=== PATIENT | male | born 1945 | race Caucasian/White ===

== ENCOUNTER → 2016-07-11 | Outpatient (CLI) | payer OTHER, BC ==
[~2016-07-11] MED LIST: ACET-24 PO; AMIT10TA6 PO; ASPEC325 PO; BESI0.6S; CYAN100048 PO; HYDR-5688 PO; HYDROCODONE PO; MULT-506 PO; OMEP20TA PO; PRAV20TA PO; PRAV40TA2 PO; PRED1SUS3 OPL; RXC5 PO; SILD100T PO; VITA400C3 PO; Z QUILL PO; ZOLP10TA PO
[2016-07-11 13:15] LABS: BASO % 0.4 %; BASO ABS # 0.02 K/uL (0-0.2); COMPLETE YES; EOS % 2.4 %; HEMATOCRIT 44.1 % (42-52); IG% 0.2 %; LYMPH % 32.8 %; LYMPH ABS # 1.77 K/uL (1.2-3.4); MEAN CELL VOLUME 93.4 fL (80-100); MEAN CORPUSCULAR HEMOGLOBIN 32.8 pg (25-34); MEAN CORPUSCULAR HGB CONC 35.1 g/dl (32-36); MEAN PLATELET VOLUME 10.5 fL (7.4-10.4); MONO % 10.4 %; NEUT % 53.8 %; PLATELET COUNT 272 K/uL (130-400); RED BLOOD COUNT 4.72 M/uL (4.7-6.1); WHITE BLOOD COUNT 5.39 K/uL (4.8-10.8)
[2016-07-11 13:25] LABS: ALT/SGPT 32 U/L (12-78); AST/SGOT 20 U/L (15-37); BLOOD UREA NITROGEN 14 mg/dl (7-18); BUN/CREATININE RATIO 12.8 (10-20); CALCIUM 8.5 mg/dl (8.5-10.1); CARBON DIOXIDE 31 mmol/L (21-32); CHLORIDE 101 mmol/L (98-107); GLUCOSE 97 mg/dl (70-99); POTASSIUM 4.6 mmol/L (3.5-5.1); SODIUM 139 mmol/L (136-145)
[2016-07-11 13:28] LABS: ALB/GLOB RATIO 1.2 (0.9-2); ALKALINE PHOSPHATASE 74 U/L (45-117); CHOLESTEROL 146 mg/dl (0-200); CHOLESTEROL/HDL RATIO 3.7; HDL CHOLESTEROL 40 mg/dl; LDL CHOLESTEROL CALCULATED 88 mg/dl; TRIGLYCERIDES 91 mg/dl (0-150); VERY LOW DENSITY LIPOPROT CALC 18 mg/dl
== END | disposition home or self-care (01) ==
LOC: C.LABSPEC 13:00
PROVIDERS: ATTEND Family Medicine
DX: E78.2 Mixed hyperlipidemia (principal); I10 Essential (primary) hypertension; K21.9 Gastro-esophageal reflux disease without esophagitis

== ENCOUNTER → 2017-01-08 | Outpatient (CLI) | payer OTHER, BC ==
[2017-01-08 13:48] LABS: BASO % 0.2 %; BASO ABS # 0.01 K/uL (0-0.2); COMPLETE YES; EOS % 2.8 %; HEMATOCRIT 43.1 % (42-52); IG% 0.2 %; LYMPH ABS # 1.48 K/uL (1.2-3.4); MEAN CELL VOLUME 94.5 fL (80-100); MEAN CORPUSCULAR HEMOGLOBIN 32.2 pg (25-34); MEAN CORPUSCULAR HGB CONC 34.1 g/dl (32-36); MEAN PLATELET VOLUME 10.4 fL (7.4-10.4); MONO % 10.5 %; NEUT % 56.3 %; PLATELET COUNT 300 K/uL (130-400); RED BLOOD COUNT 4.56 M/uL (4.7-6.1); WHITE BLOOD COUNT 4.94 K/uL (4.8-10.8)
[2017-01-08 13:58] LABS: ALT/SGPT 29 U/L (12-78); AST/SGOT 21 U/L (15-37); BLOOD UREA NITROGEN 15 mg/dl (7-18); BUN/CREATININE RATIO 13.5 (10-20); CALCIUM 8.8 mg/dl (8.5-10.1); CARBON DIOXIDE 28 mmol/L (21-32); CHLORIDE 104 mmol/L (98-107); GLUCOSE 97 mg/dl (70-99); POTASSIUM 4.5 mmol/L (3.5-5.1); SODIUM 137 mmol/L (136-145)
[2017-01-08 14:05] LABS: ALB/GLOB RATIO 1.1 (0.9-2); ALKALINE PHOSPHATASE 68 U/L (45-117); CHOLESTEROL 147 mg/dl (0-200); CHOLESTEROL/HDL RATIO 4.1; FREE PSA 0.25 ng/ml; HDL CHOLESTEROL 36 mg/dl; LDL CHOLESTEROL CALCULATED 84 mg/dl; TRIGLYCERIDES 135 mg/dl (0-150); VERY LOW DENSITY LIPOPROT CALC 27 mg/dl
== END | disposition home or self-care (01) ==
LOC: C.LABSPEC 13:02
PROVIDERS: ATTEND Family Medicine
DX: Z00.00 Encounter for general adult medical examination without abnormal findings (principal); Z12.5 Encounter for screening for malignant neoplasm of prostate; E78.2 Mixed hyperlipidemia; I10 Essential (primary) hypertension; K21.9 Gastro-esophageal reflux disease without esophagitis

== ENCOUNTER 2017-01-24 09:29 | Inpatient (IN) | payer OTHER, BC ==
[2017-01-09 10:01] VITALS: BMI 25.0
--- NOTE | 2017-01-09 10:28 | PAT Medication Instructions ---
Service Date Jan 09, 2017. Current Home Medication List Cyanocobalamin (Vitamin B-12), 1,000 MCG PO QAM Hydrocodone/Acetaminophen 5MG/325MG ([place] 5MG/325MG), 0.5-1 TABLET PO Q6H PRN for N Multivitamin (Multivitamin), 1 TAB PO QAM Omeprazole (Omeprazole), 40 MG PO QAM Pravastatin (Pravachol ), 80 MG PO QPM Sildenafil Citrate (Viagra), 100 MG PO PRN Vitamin E (Vitamin E 400 Iu), 400 INTER.UNIT PO QAM Zolpidem Tartrate (Ambien), 12.5 MG PO HS Medication Instructions For Your Scheduled Surgery - Hold the following medications 2 weeks prior to surgery: Vitamin E (Vitamin E 400 Iu), 400 INTER.UNIT PO QAM - Hold the following medications the morning of surgery: Sildenafil Citrate (Viagra), 100 MG PO PRN Multivitamin (Multivitamin), 1 TAB PO QAM Cyanocobalamin (Vitamin B-12), 1,000 MCG PO QAM - Take the following medications the morning of surgery with a sip of water: Omeprazole (Omeprazole), 40 MG PO QAM Hydrocodone/Acetaminophen 5MG/325MG ([place] 5MG/325MG), 0.5-1 TABLET PO Q6H PRN for N (okay to take up to 4 hours prior to surgery if needed) - Take the following medications as scheduled the night before surgery: Zolpidem Tartrate (Ambien), 12.5 MG PO HS Sildenafil Citrate (Viagra), 100 MG PO PRN Pravastatin (Pravachol ), 80 MG PO QPM Hydrocodone/Acetaminophen 5MG/325MG ([place] 5MG/325MG), 0.5-1 TABLET PO Q6H PRN for N (if needed) If you have any questions please call us at [phone] or [phone] or [phone]
[2017-01-09 11:02] LABS: URINE APPEARANCE CLEAR (CLEAR); URINE BILIRUBIN NEG (NEG); URINE COLOR YELLOW; URINE NITRITE NEG (NEG); URINE SPECIFIC GRAVITY 1.013 (1.000-1.030); UROBILINOGEN NEG (NEG); ZZUR CULT IF INDIC CLEAN CATCH NO
[2017-01-09 11:05] LABS: MANUAL MICROSCOPIC REQUIRED? NO; REVIEW REQ? NO
[2017-01-09 11:09] LABS: INR 1.2 (0.9-1.1); PARTIAL THROMBOPLASTIN RATIO 1.2; PROTHROMBIN TIME (PATIENT) 12.6 SECONDS (9.0-12.0)
[2017-01-09 11:21] LABS: ESTIMATED AVERAGE GLUCOSE 120 mg/dl; HA1C FLAG Normal (Normal)
--- NOTE | 2017-01-09 11:21 | DIAGNOSTIC IMAGING REPORT ---
CHEST PREADMISSION(PA/LAT) HISTORY: 71 years-old Male preadmission exam COMPARISON: Chest radiograph 01/17/2013 TECHNIQUE: Frontal and lateral views of the chest FINDINGS: There is atherosclerosis of the aorta. Cardiac silhouette is within normal limits. No pneumothorax, pleural effusion or focal airspace consolidation. Advanced degenerative changes involve the right shoulder. There is convex left curvature of the lower thoracic spine. IMPRESSION: No acute cardiopulmonary process. The above report was generated using voice recognition software. It may contain grammatical, syntax or spelling errors. Electronically signed by: Daron Canales M.D. 01/09/2017 11:19 AM Dictated Date/Time: 01/09/2017 11:19 AM
--- NOTE | 2017-01-23 18:47 | HISTORY & PHYSICAL EXAMINATION ---
DATE OF ADMISSION: 01/24/2017 CHIEF COMPLAINT: Chronic right shoulder pain. HISTORY OF PRESENT ILLNESS: This is a 71-year-old male patient of Dr. Phillips'ashley complaining of chronic right shoulder pain, longstanding, now progressively getting worse. The patient has failed conservative treatments. He has been diagnosed with end-stage osteoarthritis in his shoulder and wishes to proceed with a right total shoulder arthroplasty and distal clavicle excision. PAST MEDICAL HISTORY: Hypercholesterolemia. SOCIAL HISTORY: Nonsmoker, nondrinker. PAST SURGICAL HISTORY: Right knee replacement, left side hernia. REVIEW OF SYSTEMS: The patient complains of chronic right shoulder pain. Otherwise, denies any shortness of breath, chest pain, nausea, vomiting or any other joint complaints. FAMILY HISTORY: Noncontributory. MEDICATIONS: Include: 1. Pravastatin 80 mg daily. 2. Ambien 12.5 mg at bedtime. 3. [place] as needed. 4. Viagra 100 mg as needed. 5. Omeprazole 40 mg daily. ALLERGIES: No known drug allergies. PHYSICAL EXAMINATION: GENERAL: Well-developed, well-nourished 71-year-old male, in no acute distress. He is alert and oriented x3 and pleasant. HEENT: Normocephalic, atraumatic. Extraocular motions are intact. Pupils are equal and reactive to light. HEART: Regular rate and rhythm, no murmurs appreciated. LUNGS: Clear. ABDOMEN: Soft and nontender, bowel sounds are present. EXTREMITIES: Right shoulder reveals limited range of motion with pain and crepitation. He has 5/5 strength. NEUROLOGIC: Neurovascularly, he is intact in his right upper extremity. 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 PLAN: The patient was advised of his diagnosis. Indications, risks, benefits, and postop course have all been reviewed. The patient wishes to proceed with a right total shoulder arthroplasty and distal clavicle excision. Necessary consent forms, preoperative testing and clearances will be obtained.
[~2017-01-24] VITALS: Ht 172.7 cm; Wt 75.7 kg
[2017-01-24] VITALS (9 sets, daily range): BP systolic 107–160; BP diastolic 60–96; PULSE 83–121; TEMP 36.4–37.1; O2SAT 92–99; Ht 172.7 cm; Wt 75.7 kg
[~2017-01-24 09:29] MED LIST changes: -ACET-24 PO; +ACETAMINOPHEN 500 MG TAB PO SCH; -AMIT10TA6 PO; -ASPEC325 PO; -BESI0.6S; +CEFAZOLIN 1000MG/55 ML D5W 55 ML IV SCH; +CeleBREX 200 MG CAP PO SCH; +DEXAMETHASONE 4 MG TAB PO SCH; +FAMOTIDINE 20 MG TAB PO SCH; +GABAPENTIN 300 MG CAP PO SCH; -HYDROCODONE PO; +LACTATED RINGER'S 1000ML 1,000 ML IV SCH; +METOCLOPRAMIDE HCL 10 MG TAB PO SCH; -PRAV40TA2 PO; -PRED1SUS3 OPL; +ROPIVACAINE 0.5% 5 MG/ML 30 ML VIAL ONE; -RXC5 PO; -Z QUILL PO
[2017-01-24] MEDS ORDERED: MIDAZOLAM HCL 1 MG/ML 2ML VIAL ONE (10:17)
[2017-01-24] MEDS ORDERED: FENTANYL CITRATE INJ 50 MCG/1 ML 2 ML VIAL ONE (10:17)
--- NOTE | 2017-01-24 11:07 | History & Physical Bridge Note ---
H&P Re-Evaluation Bridge Note: I have examined the patient, reviewed the History & Physical and in the interval since the performance of the History & Physical I have noted the following changes of clinical significance: No changes noted
[2017-01-24] MEDS ORDERED: EpINEphrine HCL INJ 1 MG/ML 5ML SYRINGE ONE ×2 (11:55→11:56)
[2017-01-24] MEDS ORDERED: BACITRACIN 50000 UNIT VIAL ONE (11:55)
[2017-01-24] MEDS ORDERED: ONDANSETRON INJ 2 MG/ML 2 ML VIAL ONE (13:21)
[2017-01-24] MEDS ORDERED: PROPOFOL IV EMULSION 10 MG/ML 20 ML VIAL IV ONE (13:21)
[2017-01-24] MEDS ORDERED: DEXAMETHASONE SOD INJ 4 MG/ML VIAL ONE (13:21)
[2017-01-24] MEDS ORDERED: LIDOCAINE HCL 2% 2 ML VIAL (20MG/ML) ONE (13:21)
--- NOTE | 2017-01-24 15:55 | [facility] Post Operative Brief Note ---
Immediate Operative Summary Operative Date Jan 24, 2017. 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 Surgeon Dr. Chris Phillips Head Turbine Operator Surgeon(s) Tobias Izaguirre PA-C Estimated Blood Loss 100 mL Findings Severe end-stage glenohumeral osteoarthritis with loose bodies, marked biceps tenosynovitis, subacromial impingement from inferior before meals joint spurs, intact rotator cuff. Specimens Permanent: A. Right Humeral Head Drains 2 Hemovac Anesthesia Gen. and regional block Complication(s) None Disposition Recovery Room / PACU
[2017-01-24] MEDS ORDERED: MAGNESIUM HYDROXIDE SUSP 30 ML UDC PO PRN (16:15)
[2017-01-24] MEDS ORDERED: BISACODYL 10 MG SUPP PR PRN (16:15)
[2017-01-24] MEDS ORDERED: ALUMINUM/MAGNESIUM SUSP 30 ML UDC PO PRN (16:15)
[2017-01-24] MEDS ORDERED: ONDANSETRON INJ 2 MG/ML 2 ML VIAL IV PRN (16:15)
--- NOTE | 2017-01-24 16:30 | Anesthesiology Progress Note ---
Anesthesia Post Op Note Date & Time Jan 24, 2017 at 16:30 Vital Signs Pain Intensity: 1 Vital Signs Past 12 Hours Date Time Temp Pulse Resp B/P (MAP) Pulse Ox O2 Delivery O2 Flow Rate FiO2 01/24/17 16:00 36.4 105 16 147/80 99 Oxymask 10 01/24/17 09:45 36.5 83 20 160/96 99 Room Air Notes Mental Status: alert / awake / arousable, participated in evaluation Pt Amnestic to Procedure: Yes Nausea / Vomiting: adequately controlled Pain: adequately controlled Airway Patency, RR, SpO2: stable & adequate BP & HR: stable & adequate Hydration State: stable & adequate Anesthetic Complications: no major complications apparent
--- NOTE | 2017-01-24 17:28 | DIAGNOSTIC IMAGING REPORT ---
RIGHT SHOULDER MIN 2 VIEWS ROUTINE CLINICAL HISTORY: Post shoulder surgery Right COMPARISON: None. DISCUSSION: Shoulder arthroplasty good position. Good contact between prosthetic and underlying bone. Expected soft tissue postoperative change. Surgical drains in position. IMPRESSION: Anatomic alignment status post right shoulder arthroplasty The above report was generated using voice recognition software. It may contain grammatical, syntax or spelling errors. Electronically signed by: Kevin Butterfield M.D. 01/24/2017 5:27 PM Dictated Date/Time: 01/24/2017 5:26 PM
[2017-01-24] MEDS: D5W AND 1/2NSS + 20MEQ KCL 1,000 ML IV SCH (19:14)
[2017-01-24] MEDS: CEFAZOLIN IV 1,000 MG in DEXTROSE 5% 50ML 50 ML IV SCH (19:56)
[2017-01-24] MEDS: KETOROLAC TROMETHAMINE 15 MG/ML VIAL IV. SCH (19:57)
--- NOTE | 2017-01-24 20:14 | History and Physical ---
History & Physical Date of Service Jan 24, 2017. History & Physical pt seen and examed, d/w PA about perdomo points of dignosis and care plan, agreed current management, for details please referral to PA's note S: Pleasant, no complaining, no right shoulder pain, ROS details see PA's note O: VS reviewed, mild tachycardia and 110, NAD Lungs: decreased breathing sound, no respiratory distress, no accessory muscle use Cardiovascular: regular rate, rhythm, tachycardia no edema, normal peripheral pulses Abdomen / GI: normal bowel sounds, non tender, soft Extremities: no calf tenderness, no pedal edema Neurologic/Psychiatric: alert, normal mood/affect, oriented x 3, CNII-XII intact labs, images reviewed , see PA's note A/P: 71-year-old white male S/P right shoulder procedure, pain management, PT OT, DVT prophylaxis, discharge plan, will per primary team Will give IV fluid because of tachycardia, altered vital sign to 2 hour until stabilized, or heart rate less than 100 History of dyslipidemia we'll continue home medication Possible GERD, we'll continue PPI Thank you for the chance to involve the care of the patient will continue follow -up
[2017-01-24] MEDS: ACETAMINOPHEN 500 MG TAB PO SCH (21:51)
[2017-01-24] MEDS: DOCUSATE SODIUM 100 MG CAP PO SCH (21:51)
[2017-01-24] MEDS: PRAVASTATIN SOD 20 MG TAB PO SCH (21:51)
--- NOTE | 2017-01-24 21:55 | OPERATIVE REPORT ---
DATE OF OPERATION: 01/24/2017 INDICATION FOR THE PROCEDURE: The patient is a 71-year-old male who has chronic progressive osteoarthritis of his right shoulder, it is clearly wfkv-vs-cqau in glenohumeral joint. The radiographs demonstrate voxs-he-ukvv in glenohumeral joint . He also has AC joint arthritis and inferior AC joint spurs likely causing impingement on his rotator cuff. PREOPERATIVE DIAGNOSIS: End-stage glenohumeral osteoarthritis, right shoulder; AC joint arthritis with subacromial impingement. POSTOPERATIVE DIAGNOSIS: Same including marked bicipital tenosynovitis. PROCEDURE: Right total shoulder arthroplasty, biceps tenodesis, distal clavicle excision and excision of subacromial, acromioclavicular joint bone spurs. SURGEON: Dr. Phillips. BOARD CERTIFIED FAMILY PHYSICIAN: Tobias Izaguirre PA-C. ANESTHESIA: Regional block and general. OPERATIVE PROCEDURE: The patient was taken to the operating room, anesthetized under regional block and general anesthetic. He was placed on the operating table in a 30-degree beach chair position. A towel was placed in the medial border of his right scapula. He was translated to the right side of the bed, so his shoulder could be manipulated off the bed as necessary. His head was placed on to a foam headrest. Protective eyewear placed. He had TEDs, and SCDs placed. His right shoulder exam demonstrated that he had about 110-120 degrees of forward elevation, he had about 70-80 degrees of abduction and about 10-20 degrees of external rotation with bone on bone crepitation of the shoulder clearly. He also had problem in AC joint with AC joint palpable spurs. His right shoulder was sterilely prepped and draped with ChloraPrep. We did an anterior deltopectoral approach to the shoulder. The skin was incised sharply in a longitudinal fashion. Subcutaneous tissues were divided down to the fascia. The cephalic vein was dissected out and retracted laterally with the deltoid. The pectoralis was retracted medially. The upper centimeter of the pectoralis was released for inferior exposure. Circumflex vessels were identified, tied off with silk ties and divided laterally. The biceps tendon sheath had marked hypertrophic tenosynovitis around the biceps tendon. This was all excised. Then we tenodesed the biceps to the pectoralis tendon with a ocuceu-wt-nelit #2 FiberWire suture and resected the biceps proximally. The rotator was opened up. A large joint effusion was evacuated. A loose body in the rotator interval area was excised. And then the subscapularis was taken down with a transtendinous incision leaving a cuff of tissue for repair on the lesser tuberosity. A traction suture was placed with #1 Vicryl. Then the capsule was released along the neck until we could expose large inferior osteophytes on the neck. I went ahead also and originally, we split the inferior fibers of the subscapularis down to the capsule. I reflected the inferior fibers off the inferior capsule with a Kittner elevator and did place Hohmann retractor to protect the axillary nerve. Then we externally rotated the humerus till to expose the osteophytes. They were excised circumferentially with an osteotome, artist chisels type device and rongeur. The humeral head was completely down to eburnated bone. The humerus was then retracted posterior to the glenoid and with the Fukuda retractor. Then the capsule was released down to the glenoid under direct visualization. The capsule was released off the anterior glenoid and rotator was released down to meet the capsule for a 360 degree release. We also did a partial capsulectomy. Then a Bankart retractor was placed anteriorly. Then the axillary nerve was protected inferiorly, we did an electrocautery capsular release along the anterior inferior and posterior inferior glenoid. We did resect the glenoid labrum circumferentially. This did reveal a loose body in the posterior joint which was removed as well. The glenoid was fully down to the eburnated bone, no articular cartilage remaining on the entire glenoid. The humerus was then exposed with extension and external rotation. The humeral head cut was made to match the humeral head anatomically with an oscillating saw. The humeral head measured to be 52 mm diameter. Then we went ahead and retracted the humerus posterior to the glenoid with glenoid retractors and was a little tight to retract posteriorly. We were able to expose glenoid well and I went ahead and drilled our central drill hole for the 52 mm glenoid component. I used the Tornier Affinity CortiLoc glenoid and we used the Tornier Ascend Flex humeral component. After the central drill hole was made, a 52 mm reamer was used and then the guide for the peg holes were used and we drilled the peg holes. At this point, we did notice a small opening in the cephalic vein and we cauterized initially where it kept bleeding, so we went ahead and tied off a section of the cephalic vein with silk ties. Then we re-exposed the glenoid, copiously irrigated it and then placed epinephrine soaked tampons into the individual drill holes. We had previously done a trial reduction with a 52 trial, and which fit well. Then went ahead and mixed the Palacos G cement. Then the Affinity CortiLoc 52 component was cemented into position with the central peg press fit. There was good fixation, all excess cement was cleared. When the cement cured, we went ahead and addressed the humerus. We used a starting awl followed by sequential broaches up to a 5, which had a tight fit and fill at 5 due to the dense cancellous bone. I felt we could not go up to a higher size, even though the patient's templated at a 7. The trial reduction was performed and we had to use a 52 x 23 head to get a satisfactory stability, but this did afford good stability and a range of motion through full range of motion. I then went ahead and removed the trial and made 3 drill holes into the bicipital groove bone lateral to the lesser tuberosity, placed transosseous #5 FiberWire sutures around the lesser tuberosity. Three sutures were placed. Then the humerus cut was re-exposed and irrigated and the final stem with the short standard type stem which was the size 5A stem which was assembled to the 52 x 23 high offset head. Then this component was impacted into the humerus with a tight pressfit. We reduced it to the glenoid, verified stability. Then went ahead and repaired the subscapularis with the #5 FiberWire sutures using Rufino-Edgar suture technique, soft tissue fixation with aqwwjv-rd-lukhx #2 Fiberwire sutures and the arm was held in maximal external rotation and the rotator interval was closed and the medial most suture was #1 Vicryl suture. The repair was stable through 150 degrees of forward elevation, 90 degrees of abduction and about 40-50 degrees of external rotation. The attention was then taken to the AC joint. A transverse incision was made over the AC joint. Skin was incised sharply. Subcutaneous flaps were elevated. Then, a transverse incision was made through the fascia. The fascia was elevated off the distal clavicle, which demonstrated hypertrophic distal clavicle and spurs both superiorly and inferiorly at the AC joint. A 1 cm distal clavicle was resected with an oscillating saw. Then we also removed the dorsal spurs on the acromion and the inferior spurs at the acromial facet that were causing impingement were both removed. A ronguer was used to round off the edges of the resection. The joint was copiously irrigated. Then the fascial closure between the trapezius and deltoid fascia was closed with liicfd-mg-ettqn #2 FiberWire sutures getting a secure repair. We used wfwuef-od-ixgrd sutures there. Then after irrigation again the both incisions were repaired, the pectoralis with kbgebt-dr-muiqy #2 FiberWire, placed 2 Hemovac drains into the deltopectoral interval and placed it deep to the conjoint tendon and deep to the deltoid. Then went ahead and repaired the deltopectoral interval with sakxkh-uu-mxjau #1 Vicryl sutures. Then repaired the subcutaneous tissues with interrupted 2-0 Vicryl sutures, skin closed with florecita and the superior subcutaneous tissues closed with interrupted 2-0 Vicryl and skin closed with florecita. Sterile dressings were applied and the patient had about 100 mL of blood loss and tolerated the procedure well. Tobias Izaguirre PA-C was my patent legal assistant. He functioned as patent legal assistant through the entire procedure. He assisted in arm positioning, soft tissue retraction, instrument management and he did perform the subcutaneous and skin closure and will participate in postoperative care of the patient. I attest to the content of the Intraoperative Record and any orders documented therein. Any exceptions are noted below. PHILLY
--- NOTE | 2017-01-24 22:58 | HOSPITALIST CONSULT REPORT ---
DATE OF CONSULTATION: 01/24/2017 REASON FOR CONSULTATION: 1. Postoperative medical management. 2. Status post right total shoulder arthroplasty with biceps tenodesis and acromioplasty. HISTORY OF PRESENT ILLNESS: Mr. Barrios is a very pleasant 71-year-old white male with a history of Hypercholesterolemia, probable Prediabetes (elevated hemoglobin A1c), and Osteoarthritis who underwent a right total shoulder arthroplasty with biceps tenodesis and acromioplasty earlier today with Dr. Chris Phillips. His primary care physician is Dr. Mirza Shin in the [facility]. The patient states that he is generally healthy. 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 Overall, he feels his health is very good. He remains physically active on a daily basis and has not experienced any limiting cardiopulmonary symptoms at any time. He specifically denies any history of exertional chest pain, heaviness, tightness, pressure, or discomfort. He denies any exertional neck, jaw, back, or arm pain. He denies any history of shortness of breath, unusual dyspnea on exertion, orthopnea, or PND. No history of palpitations, tachypalpitations, syncope, or near syncope. The patient further denies any history of lung disease or prior tobacco use. He denies any history of CAD, SD, CHF, rheumatic fever, or cardiac dysrhythmias. No history of stroke or mini stroke. No liver or renal disease to his knowledge. The patient is currently being seen in room 305, and he offers no complaints. His surgical pain is well controlled, and he offers no complaints. He tolerated his evening meal without nausea or vomiting. The patient currently denies any chest discomfort or shortness of breath. He denies any nausea or vomiting. He denies any lightheadedness or dizziness. MEDICATIONS: 1. Protonix 40 mg daily. 2. Multivitamin daily. 3. Aspirin 325 mg daily. 4. Tylenol 1000 mg p.o. q. 8 hours. 5. Pravachol 80 mg q.p.m. 6. Colace 100 mg b.i.d. 7. Toradol 15 mg IV q. 6 hours. 8. Ancef 1 g IV q. 8 hours. 9. D5 half normal saline with potassium chloride at 100 mL per hour. 10. Benadryl 25 mg p.o. q. 8 hours p.r.n. for itching. 11. Zofran 4 mg IV q. 6 hours p.r.n. for nausea or vomiting. 12. Maalox 30 mL p.o. q. 4 hours p.r.n. for dyspepsia. 13. OxyIR 1 or 2 tablets every 4 hours as needed for pain. 14. Milk of magnesia 30 mL p.o. q. 6 hours p.r.n. for constipation. 15. Dulcolax 10 mg rectally q. day p.r.n. for constipation. ALLERGIES: NKDA. PAST MEDICAL HISTORY: 1. Dyslipidemia. 2. Osteoarthritis. 3. Status post right TKA in 2012. 4. Status post left-sided hernia repair. 5. History of bilateral cataract surgery. 6. History of EGD. 7. 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 SOCIAL HISTORY: The patient is . He lives in [place], [place]. Does not use alcohol or tobacco. Remains physically active on a daily basis. 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 He can climb more than 2 flight of stairs without difficulty. He is accompanied today by his daughter. He is nonsmoker. Does not drink alcohol. FAMILY HISTORY: Noncontributory. PHYSICAL EXAMINATION: VITAL SIGNS: Temperature is 36.4 degree Celsius, pulse is ranged between 101 and 108 beats beginning intraoperatively, respiratory rate is 14 and unlabored, blood pressure is 124/73, SpO2 is 98% on room air. GENERAL: The patient is in no acute distress. HEENT: Head is atraumatic, normocephalic. EOMs intact. Sclerae anicteric. Facies symmetric. No perioral cyanosis. Mucous membranes moist. NECK: Without thyromegaly, adenopathy or JVD. Carotid upstrokes are +2 bilaterally without bruits. CHEST AND LUNGS: Clear to auscultation throughout all lung jaeger. No wheezes, rales, or rhonchi. CARDIOVASCULAR: S1 and S2 are irregular without murmur, gallop, or rub. PMI is nondisplaced. No lifts, heaves, or thrills. No abdominal, aortic or renal bruits. ABDOMEN: Bowel sounds present. No masses, organomegaly, or tenderness. NEUROLOGIC: The patient is awake, alert, and oriented. Pleasant and cooperative. Answers questions appropriately. Speech is clear. Normal movement in bilateral legs and left upper extremity. MUSCULOSKELETAL: Reveals surgical dressing on the right shoulder. Surgical drain in place. Right arm is in a sling. ASSESSMENT: 1. Postoperative day #0 right total shoulder arthroplasty. 2. 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 3. Probable Prediabetes with abnormal hemoglobin A1c. 4. Sinus tachycardia, beginning intraoperatively; most likely a side effect of rocuronium and other medications with anticholinergic side effects. 5. Hemodynamically stable. PLAN: 1. The patient is doing well postoperatively. 2. Reassurance of his elevated heart rate is likely secondary to medications and post-operative hyperadrenergic state. 3. Continue Pravachol 80 mg daily. 4. Ongoing DVT prophylaxis as per surgeon. 5. Continue Protonix 40 mg daily for GI protection. 6. Ongoing pain management as per surgeon. 7. Monitor daily CBC and PRP. 8. Physical therapy as per protocol. 9. Continue IV fluids for the time being. 10. We will continue to follow along while hospitalized. MTDD
[2017-01-24] MEDS ORDERED: ZOLPIDEM TARTRATE 10 MG TAB PO ONE (23:01)
[2017-01-24] MEDS ORDERED: PANTOprazole SOD 40 MG TAB PO STA (23:01)
[2017-01-24] MEDS: OXYCODONE HCL IR 5 MG TAB (IMMEDIATE RELEASE) PO PRN (23:51)
[2017-01-25] MEDS: KETOROLAC TROMETHAMINE 15 MG/ML VIAL IV. SCH ×4 (02:06→20:03)
[2017-01-25 03:10] VITALS: BP 126/72; PULSE 80; TEMP 36.4; O2SAT 95
[2017-01-25] MEDS: CEFAZOLIN IV 1,000 MG in DEXTROSE 5% 50ML 50 ML IV SCH (04:19)
[2017-01-25] MEDS: D5W AND 1/2NSS + 20MEQ KCL 1,000 ML IV SCH ×2 (04:20→14:07)
[2017-01-25] MEDS: ACETAMINOPHEN 500 MG TAB PO SCH ×3 (05:31→22:00)
[2017-01-25 06:16] LABS: HEMATOCRIT 34.2 % (42-52); MEAN CELL VOLUME 93.7 fL (80-100); MEAN CORPUSCULAR HEMOGLOBIN 32.3 pg (25-34); MEAN CORPUSCULAR HGB CONC 34.5 g/dl (32-36); PLATELET COUNT 228 K/uL (130-400); RED BLOOD COUNT 3.65 M/uL (4.7-6.1); WHITE BLOOD COUNT 14.61 K/uL (4.8-10.8)
[2017-01-25 06:43] LABS: BUN/CREATININE RATIO 17.8 (10-20); CALCIUM 8.2 mg/dl (8.5-10.1); CREATININE 1.2 mg/dl (0.60-1.40); POTASSIUM 4.2 mmol/L (3.5-5.1)
[2017-01-25 07:25] VITALS: BP 115/65; PULSE 62; TEMP 36.3; O2SAT 95
--- NOTE | 2017-01-25 08:16 | Orthopedic Progress Note ---
Orthopedic Progress Note Date of Service Jan 25, 2017. Subjective Post OP Day: 1 Reports: feeling well, pain controlled w PO medications, Denies: complaints, chest pain, SOB, nausea / vomiting, light headedness Objective N/V intact, capillary refill less than 2 sec., dressing C/D/I, A&O x3 Sling in tact, fingers mobile. Date Time Temp Pulse Resp B/P (MAP) Pulse Ox O2 Delivery O2 Flow Rate FiO2 01/25/17 07:45 Room Air 01/25/17 07:25 36.3 62 16 115/65 (82) 95 Room Air 01/25/17 03:10 36.4 80 18 126/72 (90) 95 Room Air 01/24/17 23:45 Room Air 01/24/17 23:05 36.4 94 20 123/60 (81) 94 Room Air 01/24/17 21:57 104 16 107/75 (86) 01/24/17 20:20 36.7 119 20 124/70 (88) 93 Room Air 01/24/17 19:20 36.8 121 18 130/87 (101) 92 Room Air 01/24/17 18:40 Room Air 01/24/17 18:20 37.1 116 18 129/77 (94) 94 Room Air 01/24/17 17:50 36.5 107 20 128/80 (96) 93 Room Air 01/24/17 17:30 96 Room Air 01/24/17 17:20 36.8 104 20 146/71 (96) 96 Room Air 01/24/17 17:10 124/73 01/24/17 17:08 101 18 01/24/17 17:08 101 18 98 01/24/17 17:05 126/77 01/24/17 17:03 101 20 99 01/24/17 17:03 102 20 01/24/17 17:01 119/85 01/24/17 16:58 104 19 01/24/17 16:58 103 19 99 01/24/17 16:55 127/79 01/24/17 16:53 106 20 01/24/17 16:53 106 20 99 01/24/17 16:50 120/71 01/24/17 16:48 107 23 99 01/24/17 16:48 106 23 01/24/17 16:45 130/76 01/24/17 16:43 103 21 99 01/24/17 16:43 103 21 01/24/17 16:40 130/71 01/24/17 16:38 103 18 98 01/24/17 16:38 104 18 01/24/17 16:37 36.4 97 01/24/17 16:35 104 21 128/77 01/24/17 16:35 21 01/24/17 16:30 106 19 129/77 01/24/17 16:30 19 01/24/17 16:26 131/78 01/24/17 16:25 106 18 01/24/17 16:25 18 99 01/24/17 16:20 101 18 01/24/17 16:20 106 18 123/78 99 01/24/17 16:16 118/83 01/24/17 16:15 108 17 01/24/17 16:15 107 17 01/24/17 16:10 105 19 01/24/17 16:10 106 19 133/84 93 01/24/17 16:05 107 24 01/24/17 16:05 108 24 133/84 97 01/24/17 16:00 36.4 105 16 147/80 99 Oxymask 10 01/24/17 09:45 36.5 83 20 160/96 99 Room Air Laboratory Results 24 Hours: Test 01/25/17 05:26 Hematocrit 34.2 % Hemoglobin 11.8 g/dL Assessment & Plan Assessment: POD #1, Right TSA, Biceps tenodesis, DCE Plan: PT/ OT DVT proph- ASA D/C planning- O on Sunday As per medicine. Inhouse Planning Pain Management: Toradol, PO Tylenol, Oxy IR DVT Prophylaxis: TEDs, SCDs, ASA Discharge Planning Discharge Planning: home with oppt Pain Management: PO Tylenol, Oxy IR DVT Prophylaxis: ASA Therapy: Physical Therapy, Occupational Therapy
[2017-01-25] MEDS: MULTIVITAMIN TAB PO SCH (09:04)
[2017-01-25] MEDS: OXYCODONE HCL IR 5 MG TAB (IMMEDIATE RELEASE) PO PRN ×2 (09:04→23:52)
[2017-01-25] MEDS: DOCUSATE SODIUM 100 MG CAP PO SCH ×2 (09:04→20:53)
[2017-01-25] MEDS: ASPIRIN 325 MG ECTAB PO SCH (09:04)
[2017-01-25] MEDS: PANTOprazole SOD 40 MG TAB PO SCH (09:05)
--- NOTE | 2017-01-25 11:03 | Anesthesiology Progress Note ---
Anesthesia Post Op Note Date & Time Jan 25, 2017 at 11:02 Vital Signs Pain Intensity: 4.0 Vital Signs Past 12 Hours Date Time Temp Pulse Resp B/P (MAP) Pulse Ox O2 Delivery O2 Flow Rate FiO2 01/25/17 07:45 Room Air 01/25/17 07:25 36.3 62 16 115/65 (82) 95 Room Air 01/25/17 03:10 36.4 80 18 126/72 (90) 95 Room Air 01/24/17 23:45 Room Air 01/24/17 23:05 36.4 94 20 123/60 (81) 94 Room Air Notes Mental Status: alert / awake / arousable, participated in evaluation Pt Amnestic to Procedure: Yes Nausea / Vomiting: adequately controlled Pain: adequately controlled Airway Patency, RR, SpO2: stable & adequate BP & HR: stable & adequate Hydration State: stable & adequate Anesthetic Complications: no major complications apparent
[2017-01-25] MEDS ORDERED: GLUCOSE 40% GEL 15 GM TUBE PO PRN (12:15)
[2017-01-25] MEDS ORDERED: GLUCOSE 10 TABS/TUBE PO PRN (12:15)
[2017-01-25] MEDS ORDERED: GLUCAGON FOR INJ 1 MG VIAL SQ PRN (12:15)
[2017-01-25] MEDS ORDERED: DEXTROSE 50% 50 ML SYR IV PRN (12:15)
--- NOTE | 2017-01-25 12:15 | Hospitalist Progress Note ---
Hospitalist Progress Note Date of Service Jan 25, 2017. (Chiquis Abreu ., JOHN-C) Subjective Pt evaluation today including: conversation w/ patient, physical exam, chart review, lab review, review of inpatient medication list Pain: Right shoulder, controlled with pain meds PO Intake: Tolerating PO diet Voiding: no voiding problems Patient reports feeling well. He does complain of some aching pain in his right shoulder but states that this is manageable with oxycodone and Toradol. He does complain of some tingling in his right fingers, but states this is improving. He is tolerating a PO diet well and urinating without difficulty. He is passing gas but denies any bowel movements yet. The patient denies fevers , chills, sweats, chest pain, palpitations, claudication, cough, wheezing, shortness of breath, nausea, vomiting, abdominal pain, dysuria, hematuria, urinary retention, paralysis, weakness. Additional Comments: See HPI for pertinent positives and negatives. All other systems reviewed and negative. (Chiquis Abreu ., JOHN-C) Objective Vital Signs Date Time Temp Pulse Resp B/P (MAP) Pulse Ox O2 Delivery O2 Flow Rate FiO2 01/25/17 07:45 Room Air 01/25/17 07:25 36.3 62 16 115/65 (82) 95 Room Air 01/25/17 03:10 36.4 80 18 126/72 (90) 95 Room Air 01/24/17 23:45 Room Air 01/24/17 23:05 36.4 94 20 123/60 (81) 94 Room Air 01/24/17 21:57 104 16 107/75 (86) 01/24/17 20:20 36.7 119 20 124/70 (88) 93 Room Air 01/24/17 19:20 36.8 121 18 130/87 (101) 92 Room Air 01/24/17 18:40 Room Air 01/24/17 18:20 37.1 116 18 129/77 (94) 94 Room Air 01/24/17 17:50 36.5 107 20 128/80 (96) 93 Room Air 01/24/17 17:30 96 Room Air 01/24/17 17:20 36.8 104 20 146/71 (96) 96 Room Air 01/24/17 17:10 124/73 01/24/17 17:08 101 18 9/13/17 17:08 101 18 98 01/24/17 17:05 126/77 01/24/17 17:03 101 20 99 01/24/17 17:03 102 20 01/24/17 17:01 119/85 01/24/17 16:58 104 19 01/24/17 16:58 103 19 99 01/24/17 16:55 127/79 01/24/17 16:53 106 20 01/24/17 16:53 106 20 99 01/24/17 16:50 120/71 01/24/17 16:48 107 23 99 01/24/17 16:48 106 23 01/24/17 16:45 130/76 01/24/17 16:43 103 21 99 01/24/17 16:43 103 21 01/24/17 16:40 130/71 01/24/17 16:38 103 18 98 01/24/17 16:38 104 18 01/24/17 16:37 36.4 97 01/24/17 16:35 104 21 128/77 01/24/17 16:35 21 01/24/17 16:30 106 19 129/77 01/24/17 16:30 19 01/24/17 16:26 131/78 01/24/17 16:25 106 18 01/24/17 16:25 18 99 01/24/17 16:20 101 18 01/24/17 16:20 106 18 123/78 99 01/24/17 16:16 118/83 01/24/17 16:15 108 17 01/24/17 16:15 107 17 01/24/17 16:10 105 19 01/24/17 16:10 106 19 133/84 93 01/24/17 16:05 107 24 01/24/17 16:05 108 24 133/84 97 01/24/17 16:00 36.4 105 16 147/80 99 Oxymask 10 (Chiquis Abreu, JOHN-C) Physical Exam Notes: General appearance: Well-developed, well-nourished, no apparent distress Head: Normocephalic, atraumatic Eyes: Normal inspection, PERRL, EOMI ENT: Normal ENT inspection, hearing grossly normal, pharynx normal Neck: Supple, no JVD, trachea midline Respiratory/Chest: Lungs clear to auscultation, normal breath sounds, no respiratory distress Cardiovascular: Regular rate & rhythm, no gallop, no murmur Abdomen/GI: Normal bowel sounds, non-tender, soft Extremities/Musculoskeletal: +RUE in sling, wrapped in bandages. Right fingers with non-pitting edema. Normal inspection, no calf tenderness, no pedal edema Neurological/Psych: Alert, normal mood/affect, oriented x 3 Skin: Normal color, warm/dry, no rash (Chiquis Abreu ., JOHN-C) Laboratory Results Last 24 Hours Test 01/25/17 05:26 White Blood Count 14.61 K/uL Red Blood Count 3.65 M/uL Hemoglobin 11.8 g/dL Hematocrit 34.2 % Mean Corpuscular Volume 93.7 fL Mean Corpuscular Hemoglobin 32.3 pg Mean Corpuscular Hemoglobin Concent 34.5 g/dl RDW Standard Deviation 45.4 fL RDW Coefficient of Variation 13.2 % Platelet Count 228 K/uL Mean Platelet Volume 10.0 fL Sodium Level 132 mmol/L Potassium Level 4.2 mmol/L Chloride Level 99 mmol/L Carbon Dioxide Level 27 mmol/L Anion Gap 6.0 mmol/L Blood Urea Nitrogen 21 mg/dl Creatinine 1.20 mg/dl Est Creatinine Clear Calc Drug Dose 53.0 ml/min Estimated GFR () 69.1 Estimated GFR (Non- 59.6 BUN/Creatinine Ratio 17.8 Random Glucose 189 mg/dl Calcium Level 8.2 mg/dl (Chiquis Abreu ., PA-C) Assessment and Plan 71 y/o male with a history of HLD, GERD and prediabetes who presents s/p right TSA with Dr. Phillips on 01/24 for medical management. S/p R TSA, biceps tenodesis, distal clavicle excision, and excision of acromial facet subacromial bone spurs--POD #1 -Pain management, DVT prophylaxis, and PT/OT as per primary team -AVSS -Sinus tachycardia now resolved HLD -Continue pravastatin 80 mg PO qd GERD -Prilosec converted to Protonix 40 mg PO qd Prediabetes--HgbA1c 5.8 on 01/09/17 -BSG 189 this morning -Insulin sliding scale -Check BSGs q ac and qhs Code Status -Level I, FULL RESUSCITATION STATUS Thank you for this consultation. We will continue to follow. (Chiquis Abreu ., RAIN) Reviewed: Pt Seen/Exam by Me (Daja Sanford MD) History Physician Ring Stamper Supervision Note: I interviewed and examined the patient. Discussed with JOHN Abreu and agree with findings and plan as documented in the note. Any exceptions or clarifications are listed here: Pt doing well, was having trouble sleeping the last 2 nights and just took an Ambien Vitals reviewed NAD AAOx3 RRR no mgr CTAB no wcr Abd +BS soft NT ND Ext RUE in shoulder sling, legs no calf tenderness, no edema 71 yo male with RUE TSA, doing very well post-op -ASA for DVT proph -f/u with PCP regarding prediabetes -plan for dc to home tomorrow Documented By: Daja Sanford (Daja Sanford MD)
[2017-01-25 12:20] VITALS: BP 139/69; PULSE 65; TEMP 36.6; O2SAT 95
[2017-01-25 15:00] VITALS: BP 130/67; PULSE 66; TEMP 36.4; O2SAT 99
[2017-01-25] MEDS: INSULIN ASPART 100 UNITS/ML 3 ML PEN SC SCH ×2 (17:15→20:55)
[2017-01-25] MEDS: PRAVASTATIN SOD 20 MG TAB PO SCH (20:53)
[2017-01-25] MEDS ORDERED: ZOLPIDEM TARTRATE 10 MG TAB PO SCH (21:00)
[2017-01-25 23:28] VITALS: BP 133/74; PULSE 64; TEMP 36.7; O2SAT 94
[2017-01-26] MEDS: KETOROLAC TROMETHAMINE 15 MG/ML VIAL IV. SCH ×2 (02:18→07:57)
[2017-01-26] MEDS: ACETAMINOPHEN 500 MG TAB PO SCH (05:33)
[2017-01-26 05:44] LABS: HEMATOCRIT 34.1 % (42-52); MEAN CELL VOLUME 95.3 fL (80-100); MEAN CORPUSCULAR HEMOGLOBIN 32.4 pg (25-34); MEAN PLATELET VOLUME 9.7 fL (7.4-10.4); PLATELET COUNT 223 K/uL (130-400); RED BLOOD COUNT 3.58 M/uL (4.7-6.1); WHITE BLOOD COUNT 9.41 K/uL (4.8-10.8)
[2017-01-26 06:41] LABS: BUN/CREATININE RATIO 21.5 (10-20); CALCIUM 8.3 mg/dl (8.5-10.1); POTASSIUM 4.5 mmol/L (3.5-5.1)
[2017-01-26 06:46] VITALS: BP 159/82; PULSE 71; TEMP 36.5; O2SAT 93
[2017-01-26] MEDS: INSULIN ASPART 100 UNITS/ML 3 ML PEN SC SCH (07:13)
[2017-01-26] MEDS: ASPIRIN 325 MG ECTAB PO SCH (07:57)
[2017-01-26] MEDS: MULTIVITAMIN TAB PO SCH (07:57)
[2017-01-26] MEDS: DOCUSATE SODIUM 100 MG CAP PO SCH (07:57)
[2017-01-26] MEDS: OXYCODONE HCL IR 5 MG TAB (IMMEDIATE RELEASE) PO PRN (07:57)
[2017-01-26] MEDS: PANTOprazole SOD 40 MG TAB PO SCH (07:57)
--- NOTE | 2017-01-26 07:59 | Orthopedic Progress Note ---
Orthopedic Progress Note Date of Service Jan 26, 2017. Subjective Post OP Day: 2 Reports: feeling well, pain controlled w PO medications, Denies: complaints, chest pain, SOB, nausea / vomiting, light headedness, calf pain Objective N/V intact, capillary refill less than 2 sec., incision C/D/I, A&O x3 fingers mobile, sling in tact. Date Time Temp Pulse Resp B/P (MAP) Pulse Ox O2 Delivery O2 Flow Rate FiO2 01/26/17 07:18 Room Air 01/26/17 06:46 36.5 71 16 159/82 (107) 93 Room Air 01/25/17 23:55 Room Air 01/25/17 23:28 36.7 64 16 133/74 (93) 94 Room Air 01/25/17 16:00 Room Air 01/25/17 15:00 36.4 66 20 130/67 (88) 99 Room Air 01/25/17 12:20 36.6 65 16 139/69 (92) 95 Room Air Laboratory Results 24 Hours: Test 01/26/17 05:30 Hematocrit 34.1 % Hemoglobin 11.6 g/dL Assessment & Plan Assessment: POD #2, Right TSA, Biceps tenodesis, DCE Plan: PT/ OT DVT proph- ASA D/C planning- Home w OPPT today As per medicine. Inhouse Planning Pain Management: Toradol, PO Tylenol, Oxy IR DVT Prophylaxis: TEDs, SCDs, ASA Discharge Planning Discharge Planning: home with oppt Pain Management: PO Tylenol, Oxy IR DVT Prophylaxis: ASA Therapy: Physical Therapy, Occupational Therapy
[2017-01-26] MEDS ORDERED: ACET-24 PO (08:01)
[2017-01-26] MEDS ORDERED: RXC5 PO (08:01)
[2017-01-26] MEDS ORDERED: ASPEC325 PO (08:01)
--- NOTE | 2017-01-26 08:03 | Discharge Instructions ---
Discharge Instructions Date of Service Jan 26, 2017. Admission Reason for Admission: Right Shoulder Degenerative Joint Disease Discharge Discharge Diagnosis / Problem: Right TSA, biceps tenodesis, distal clavicle excision. Discharge Goals Goal(s): Improve function Activity Recommendations Activity Limitations: as noted below . Instructions / Follow-Up Instructions / Follow-Up ACTIVITY RECOMMENDATIONS: SELF CARE INSTRUCTIONS AFTER TOTAL SHOULDER ARTHROPLASTY A. You may do daily exercises as taught in physical therapy while in hospital. No lifting with the operative arm. Please schedule your outpatient physical therapy appointment to begin within 2-3 days after leaving the hospital. Specific restrictions will be written on your physical therapy prescription that is provided to you. B. You are to wear your sling/immobilizer at all times EXCEPT when performing your daily exercises, participating in physical therapy and for hygiene purposes. C. You may perform dry, daily dressing changes. Please keep your incision covered. You may shower 48 hours after surgery. Do not apply soap or any ointment/ lotions directly over incision. Do not soak incision in bath tub/swimming pool. D. You may use ice as needed to operative shoulder. SPECIAL CARE INSTRUCTIONS: MEDICATION INSTRUCTIONS: *It is recommended you take Aspirin 325mg daily for four weeks post-op. VERY IMPORTANT TO READ AND REVIEW A. There are a few signs you need to watch for after you are home. Call [facility] at [phone] if you experience any of the followin. Increased severe shoulder pain. Some pain is expected especially when you exercise. 2. Increased swelling in you shoulder or arm; pain or swelling in either upper extremity. 3. Any fluid drainage from the incision. 4. Shortness of breath or chest pain. B. Please call [facility] at [phone] if you have any questions or concerns about your operation or recovery. C. Call your physician if: 1. Temperature is greater than 101 degrees (F). 2. Pain is not relieved by prescribed pain medications. 3. Increase drainage or redness from incision. 4. Unanswered questions or concerns. FOLLOW UP VISIT: Please call [facility] at [phone] to schedule a follow up appointment with Dr. Phillips or his PA in 12-14 days from your surgery date. Current Hospital Diet Patient's current hospital diet: Diabetes Type 2 Diet Discharge Diet Recommended Diet: Diabetes Type 2 Diet Procedures Procedures Performed: right total shoulder arthroplasty, biceps tenodesis, distal clavicle excision, excision acromial facet subacromial bone spurs. Pending Studies Studies pending at discharge: no Laboratory Results Hemoglobin A1c Test 01/09/17 10:35 Range/Units Estimated Average Glucose 120 mg/dl Hemoglobin A1c 5.8 H 4.5-5.6 % Lipid Panel Test 01/08/17 09:10 Range/Units Triglycerides Level 135 0-150 mg/dl Cholesterol Level 147 0-200 mg/dl HDL Cholesterol 36 mg/dl Cholesterol/HDL Ratio 4.1 LDL Cholesterol, Calculated 84 mg/dl Medical Emergencies . Who to Call and When: Medical Emergencies: If at any time you feel your situation is an emergency, please call 911 immediately. . Non-Emergent Contact Non-Emergency issues call your: Primary Care Provider . "Provider Documentation" section prepared by Kevin Segal. . VTE Core Measure Inpt VTE Proph given/why not?: Other Anticoagulation (asa), T.E.D. Stockings, SCD's [place] Drug Monitoring Program Search Results: patient reviewed within database, no issues identified
[2017-01-26 08:04] VITALS: BP 159/82; PULSE 71; TEMP 36.5; O2SAT 93
--- NOTE | 2017-01-26 11:17 | Hospitalist Progress Note ---
Hospitalist Progress Note Date of Service Jan 26, 2017. (Coco Waterman ., RAIN) Subjective Pt evaluation today including: conversation w/ patient, physical exam, lab review, review of studies, review of inpatient medication list Patient feeling well. Eating and drinking OK. Pain well controlled. +flatus, no BM postop. Patient denies any fever, chills, sweats, lightheadedness, dizziness, vision changes, CP, palpitations, edema, SOB, wheezing, cough, abdominal pain, nausea, vomiting, diarrhea, urinary symptoms, melena, numbness/tingling, weakness, anxiety/depression, active bleeding, or new skin discoloration/changes. (Coco Waterman ., GRISELC) Medications Current Inpatient Medications Medications (Trade) Dose Ordered Sig/Noris Route Start Time Stop Time Status Last Admin Dose Admin Pravastatin Sodium (Pravachol Tab) 80 mg QPM PO 01/24/17 21:00 02/23/17 20:59 01/25/17 20:53 80 MG Diphenhydramine HCl (Benadryl Cap) 25 mg Q8 PRN PO 01/24/17 16:15 02/23/17 16:14 Ondansetron HCl (Zofran Inj) 4 mg Q6H PRN IV 01/24/17 16:15 02/23/17 16:14 Al Hydroxide/Mg Hydroxide (Maalox Susp) 30 ml Q4H PRN PO 01/24/17 16:15 02/23/17 16:14 Pantoprazole Sodium (Protonix Tab) 40 mg QAM PO 01/25/17 09:00 02/24/17 08:59 01/26/17 07:57 40 MG Ketorolac Tromethamine (Toradol Inj) 15 mg Q6H IV. 01/24/17 20:00 01/26/17 19:59 01/26/17 07:57 15 MG Oxycodone HCl (Roxicodone Immediate Rel Tab) `1-2 TABS FOR PAIN `1 TAB... Q4H PRN PO 01/24/17 16:15 02/07/17 16:14 01/26/17 07:57 10 MG Acetaminophen (Tylenol Tab) 1,000 mg Q8 PO 01/24/17 22:00 02/23/17 21:59 01/26/17 05:33 1,000 MG Magnesium Hydroxide (Milk Of Magnesia Susp) 30 ml Q6H PRN PO 01/24/17 16:15 02/23/17 16:14 Bisacodyl (Dulcolax Supp) 10 mg DAILY PRN IA 01/24/17 16:15 02/23/17 16:14 Docusate Sodium (coLACE CAP) 100 mg BID PO 01/24/17 21:00 02/23/17 20:59 01/26/17 07:57 100 MG Multivitamins (Multivitamin Tab) 1 tab DAILY PO 01/25/17 09:00 02/24/17 08:59 01/26/17 07:57 1 TAB Aspirin (Ecotrin Tab) 325 mg DAILY PO 01/25/17 09:00 02/24/17 08:59 01/26/17 07:57 325 MG Zolpidem Tartrate (Ambien Tab) 5 mg HS PO 01/25/17 21:00 02/24/17 20:59 01/25/17 22:05 5 MG Glucose (Glucose 40% Gel) 15-30 GRAMS 15 GRAMS... UD PRN PO 01/25/17 12:15 02/24/17 12:14 Glucose (Glucose Chew Tab) 4-8 Tablets 4 Tabl... UD PRN PO 01/25/17 12:15 02/24/17 12:14 Dextrose (Dextrose 50% 50ML Syringe) 25-50ML OF 50% DW IV FOR... UD PRN IV 01/25/17 12:15 02/24/17 12:14 Glucagon (Glucagon Inj) 1 mg UD PRN SQ 01/25/17 12:15 02/24/17 12:14 Insulin Aspart (novoLOG ASPART) SLIDING SCALE G... ACHS SC 01/25/17 17:15 02/24/17 17:14 (Coco Waterman, RAIN) Objective Vital Signs Date Time Temp Pulse Resp B/P (MAP) Pulse Ox O2 Delivery O2 Flow Rate FiO2 01/26/17 08:04 36.5 71 16 93 Room Air 01/26/17 07:18 Room Air 01/26/17 06:46 36.5 71 16 159/82 (107) 93 Room Air 9/14/17 23:55 Room Air 01/25/17 23:28 36.7 64 16 133/74 (93) 94 Room Air 01/25/17 16:00 Room Air 01/25/17 15:00 36.4 66 20 130/67 (88) 99 Room Air 01/25/17 12:20 36.6 65 16 139/69 (92) 95 Room Air (Coco Waterman ., JOHN-C) Physical Exam General Appearance: no apparent distress Eyes: normal inspection, PERRL ENT: hearing grossly normal Neck: supple Respiratory/Chest: lungs clear, normal breath sounds, no respiratory distress, no accessory muscle use Cardiovascular: regular rate, rhythm Abdomen: normal bowel sounds, non tender, soft Extremities: no pedal edema, no calf tenderness, + pertinent finding (R arm sling ) Neurologic/Psychiatric: alert, normal mood/affect, oriented x 3 Skin: normal color, warm/dry, no rash (Coco Waterman, GRISELC) Laboratory Results Last 24 Hours Test 01/25/17 17:10 01/25/17 20:53 01/26/17 05:30 01/26/17 06:44 Bedside Glucose 105 mg/dl 110 mg/dl 87 mg/dl White Blood Count 9.41 K/uL Red Blood Count 3.58 M/uL Hemoglobin 11.6 g/dL Hematocrit 34.1 % Mean Corpuscular Volume 95.3 fL Mean Corpuscular Hemoglobin 32.4 pg Mean Corpuscular Hemoglobin Concent 34.0 g/dl RDW Standard Deviation 47.4 fL RDW Coefficient of Variation 13.6 % Platelet Count 223 K/uL Mean Platelet Volume 9.7 fL Sodium Level 138 mmol/L Potassium Level 4.5 mmol/L Chloride Level 105 mmol/L Carbon Dioxide Level 28 mmol/L Anion Gap 5.0 mmol/L Blood Urea Nitrogen 22 mg/dl Creatinine 1.00 mg/dl Est Creatinine Clear Calc Drug Dose 63.6 ml/min Estimated GFR () 86.2 Estimated GFR (Non- 74.3 BUN/Creatinine Ratio 21.5 Random Glucose 88 mg/dl Calcium Level 8.3 mg/dl (Coco Waterman, JOHN-C) Assessment and Plan 71 y/o male with a history of HLD, GERD and prediabetes who presents s/p right TSA with Dr. Phillips on 01/24 for medical management. S/p R TSA, biceps tenodesis, distal clavicle excision, and excision of acromial facet subacromial bone spurs by Dr. Phillips on 01/24: - Pain management, DVT prophylaxis, and PT/OT as per primary team - Postop CBC and PRP- STABLE HLD: Continue Pravastatin 80 mg PO qd Prediabetes- HgbA1c 5.8 on 01/09/17: - BSG ACHS and sliding insulin scale - Follow-up w/ PCP GI prophylaxis: Protonix DVT prophylaxis: ASA Code Status: LEVEL I, FULL Dispo: Discharge to home w/ HHS as per primary team (Coco Waterman, PA-C) Reviewed: Pt Seen/Exam by Me (Daja Sanford MD) History Pt left before I could see him. Agree with PA findings and plan (Daja Sanford MD)
--- NOTE | 2017-01-29 17:20 | DISCHARGE SUMMARY ---
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 CONSULTS: Dr. Adan Portillo. COMPLICATIONS: None. PROCEDURES: Right total shoulder arthroplasty with biceps tenodesis, distal clavicle excision and excision of acromial facet, subacromial bone spurs by Dr. Phillips on 01/24/2017. BRIEF HISTORY: As dictated in history and physical. HOSPITAL SUMMARY: The patient was admitted on the above date and underwent the above noted procedure performed which she tolerated well. She did have a noted sinus tachycardia that was beginning during the intraoperative period now, which was felt to be most likely a side effect of rocuronium. Other medications with anticholinergic side effects per Luisito Downey PA-C, who had seen the patient postoperatively. By her first postoperative day, she was feeling well and pain was controlled. Neurovascularly intact. Cap refill is less than 2 seconds. Dressings were clean, dry and intact. Fingers were mobile and vital signs were stable. He was afebrile. Hemoglobin was 11.8 and the patient was started on PT protocol and continued on DVT prophylaxis and pain management. By the patient's second postoperative day, she was feeling well, pain was controlled and they had no complaints. Neurovascularly intact. Incision was benign. Fingers were mobile. Hemoglobin was 11.6 and she was remaining medically stable as well as orthopedically stable and it was felt that she could be discharged to home. For further review, please see the chart. LABORATORY AND X-RAY DATA: As per chart. DISCHARGE INSTRUCTIONS: The patient was discharged to home in satisfactory condition on 01/26/2017. DIET: Regular, diabetic type 2. ACTIVITY: Follow total shoulder arthroplasty instructions as written as well as special care instructions. Follow up with Dr. Phillips in 2 weeks. The patient to call for appointment if one has not been made for you. DISCHARGE MEDICATIONS: Acetaminophen 1000 mg p.o. q. 8 hours for 21 days, aspirin 325 mg p.o. daily for 30 days, oxycodone 5-10 mg p.o. q. 4 hours p.r.n. Resume home meds as listed and stop taking [place].
== END 2017-01-26 11:20 | disposition home health service (06) | DRG 483 ==
LOC: C.ACU 09:29 → C.3E 10:56 → ENRESERV 16:25
PROVIDERS: ADMIT Orthopaedic Surgery Sports Medicine; ATTEND Orthopaedic Surgery Sports Medicine
PROC: 0LS10ZZ Reposition Right Shoulder Tendon, Open Approach (ICD-10-PCS; principal; 2017-01-24 11:30)
PROC: 0PB90ZZ Excision of Right Clavicle, Open Approach (ICD-10-PCS; principal; 2017-01-24 11:30)
PROC: 0RRJ0JZ Replacement of Right Shoulder Joint with Synthetic Substitute, Open Approach (ICD-10-PCS; principal; 2017-01-24 11:30)
DX: M19.011 Primary osteoarthritis, right shoulder (principal); M75.21 Bicipital tendinitis, right shoulder; M25.811 Other specified joint disorders, right shoulder; E78.00 Pure hypercholesterolemia, unspecified; K21.9 Gastro-esophageal reflux disease without esophagitis; R73.03 Prediabetes; R00.0 Tachycardia, unspecified; T50.995A Adverse effect of other drugs, medicaments and biological substances, initial encounter; Z96.651 Presence of right artificial knee joint; Z79.899 Other long term (current) drug therapy

== ENCOUNTER 2022-12-13 08:03 | Observation (INO) ==
--- NOTE | 2022-11-30 12:10 | PAT Medication Instructions ---
Medication Instructions Date of Service November 30, 2022 Home Medications multivitamin 1 tab PO QAM hydrocodone 5 mg-acetaminophen 325 mg tablet 0.5 tab PO DAILY PRN Pain omeprazole 40 mg capsule,delayed release 40 mg PO QAM pravastatin 80 mg tablet 80 mg PO HS DO NOT take the morning of surgery multivitamin 1 tab PO QAM Take morning of surgery With a small sip of water, OTHERWISE NOTHING TO EAT OR DRINK AFTER MIDNIGHT: hydrocodone 5 mg-acetaminophen 325 mg tablet 0.5 tab PO DAILY PRN Pain (if needed) omeprazole 40 mg capsule,delayed release 40 mg PO QAM Take evening before surgery hydrocodone 5 mg-acetaminophen 325 mg tablet 0.5 tab PO DAILY PRN Pain (if needed) pravastatin 80 mg tablet 80 mg PO HS Other Notes If you have any questions please call us at [phone] or [phone] or [phone] or [phone]
--- NOTE | 2022-12-08 10:56 | Anesthesiology Consultation ---
Date of Service December 08, 2022 Assessment & Plan (1) Encounter for pre-operative examination: - Covid screening: Per corporate licensed broker on 12/08/22: No known infectious disease contacts or current infectious disease symptoms in past 10 days. No COVID positive test result in the past 90 days noted. - Outpatient joint assessment: Pt currently scheduled for inpatient pathway. If surgeon requests review for outpatient joint pathway, patient is not recommended candidate for outpatient joint program from anesthesia standpoint based on available information. - S/P Left TKA (04/17/18): SAB at L3-4 x1 attempt + PNB at [facility] - PCP visit (10/19/22): "Patient feeling well. Condition has been well controlled since last visit" > advised to f/u with surgeon regarding shoulder pain. Chart Review Chart Review: Acceptable Risk for Surgery and Patient seen in Pre Admission Testing Teaching & Discussion Pre-Anesthesia Teaching/Discussion Notes: Instructed NPO after midnight before surgery,except medications with 15 cc of water. Medication instructions provided according to the PAT guidelines. History Surgery Operation Date: 12/13/22 10:25 Proposed Procedures p Left Total Shoulder Arthroplasty - Chris Phillips MD Height/Weight Height: 5 ft 8 in Weight: 77.7 kg Allergies Allergy/AdvReac Type Severity Reaction Status Date / Time No Known Allergies Allergy Verified 11/30/22 10:47 Medications Home Medications Medication Instructions Recorded Confirmed Last Taken multivitamin 1 tab PO QAM 03/12/18 11/30/22 04/16/18 08:00 hydrocodone 5 mg-acetaminophen 325 0.5 tab PO DAILY PRN Pain 11/30/22 11/30/22 Unknown mg tablet omeprazole 40 mg capsule,delayed 40 mg PO QAM 11/30/22 11/30/22 Unknown release pravastatin 80 mg tablet 80 mg PO HS 11/30/22 11/30/22 Unknown Past Medical History Medical History Chronic anemia GERD (gastroesophageal reflux disease) History of COVID-2020; symptoms resolved History of GI bleed Hyperlipidemia Osteoarthritis Exercise / Class Metabolic Activity II 4-5 Yardwork/Stairs/Walk up hill (one FS (no CP, no SOB)) Past Family History Family History Grandmother Family history of diabetes mellitus Father , Age 83 Alzheimer disease Mother No problems noted. Other No family history of adverse response to anesthesia Past Surgical History Surgical History History of cataract surgery R/L History of colonoscopy History of esophagogastroduodenoscopy (EGD) History of herniorrhaphy R/L inguinal History of total knee replacement R/L Left TKA (04/17/18): SAB at L3-4 x1 attempt + PNB at [facility] History of total shoulder replacement right Hx of vasectomy Past Anesthesia History No Hx of Anesthesia Complications and No Family Hx of Anesthesia Complications History of PONV No Hx of PONV and No Hx of Motion Sickness Social History Smoking Status: Never smoker Do You Dip or Chew Tobacco: No Hx Alcohol Use: No substance use type: does not use Review of Systems Patient denies chest pain, shortness of breath, dyspnea on exertion, fever, chills, cough, wheezing, palpitations. Physical Exam Vital Signs VITALS BP 163/85 P 68 TEMP 98.3 SP02 95%RA RESP 18 PHYSICAL Full cervical extension range of motion. Full TMJ range of motion. TMD 3 finger breaths Mallampati Score 2 Dentition: intact, + crown Lungs: clear throughout to auscultation, + crown Cardiac: regular rate and rhythm, I/ systolic murmur ["no murmur" per recent PCP visit 10/2022*] Spine: normal Carotid arteries: negative bruit Extremities: no LE edema Lab Results Anesthesia Preop Results Results Anesthesia Widget: WBC 6.30 K/ul (4.8-10.8) 12/08/22 Hgb 12.4 g/dl (14.0-18.0) L 12/08/22 Hct 37.1 % (42.0-52.0) L 12/08/22 Plt 280 K/uL (130-400) 12/08/22 Na 135 mmol/L (136-145) L 12/08/22 K 4.1 mmol/L (3.5-5.1) 12/08/22 Cl 102 mmol/L (98-107) 12/08/22 CO2 27 mmol/L (21-32) 12/08/22 BUN 21 mg/dl (6-23) 12/08/22 Creat 1.11 mg/dl (0.6-1.4) 12/08/22 Glucose Level 88 mg/dl (70-99(Fasting)) 12/08/22 PT 13.0 Seconds (9.0-12.0) H 12/08/22 PTT 29.8 Seconds (21.0-31.0) 12/08/22 INR 1.2 (0.9-1.1) H 12/08/22 Urine Color Yellow 12/08/22 Urine Appearance Clear (Clear) 12/08/22 Urine pH 7.5 (4.5-7.5) 12/08/22 Urine Specific Byron 1.016 (1.000-1.030) 12/08/22 Urine Protein Negative (Negative) 12/08/22 Urine Glucose (UA) Negative (Negative) 12/08/22 Urine Ketones Negative (Negative) 12/08/22 Urine Blood Negative (Negative) 12/08/22 Urine Nitrite Negative (Negative) 12/08/22 Urine Bilirubin Negative (Negative) 12/08/22 Urine Urobilinogen Negative (Negative) 12/08/22 Urine Leukocyte Esterase Negative (Negative) 12/08/22 Blood Type O Positive 12/08/22 Antibody Screen NEGATIVE 12/08/22 Testing Electrocardiogram Date: 12/08/22 NSR at 62bpm. Chest X-Ray Date: 12/08/22 FINDINGS: Cardiac mediastinal and hilar silhouettes are within normal limits. Atherosclerosis of the aorta. No pneumothorax, pleural effusion, airspace consolidation or pulmonary edema. Mild mid thoracic dextroscoliosis. Right shoulder arthroplasty. IMPRESSION: No acute process.
--- NOTE | 2022-12-12 12:27 | History & Physical Report ---
Date of Service December 12, 2022 Assessment & Plan (1) Primary osteoarthritis, left shoulder: Plan: Treatment options discussed with the patient. He has failed conservative measures and would like to proceed with surgery. Risks, benefits and alternatives to surgery including but not limited to infection, DVT, pain, stiffness, need for revision surgery, damage to blood vessels, damage to nerves, PE, , were discussed with the patient and they wish to proceed. Plan on left total shoulder arthroplasty scheduled for 12/13/[address] Phillips at [facility]. Plan on outpatient physical therapy. Patient did have a systolic murmur heard on exam today, patient reports this is something he has had since a child. All questions answered. Patient will follow up post op. History of Present Illness Chief Complaint: Left shoulder pain Primary Care Provider: Mirza Shin, 77yo male with PMHx significant for dyslipidemia, GERD, hx GI bleed who presents with ongoing left shoulder pain. He has had pain for several years. Pain is interfering with his daily activity. He has failed conservative measures. He would like to proceed with surgery. Patient denies headaches, sweats, fevers, chills, double vision, blurred vision, cough, sore throat, dysphagia, chest pain, sob, wheezing, n/v/d/c, numbness, tingling, fatigue, urinary symptoms, mood disorders. ROS positive for left shoulder pain and stiffness. Allergies Allergy/AdvReac Type Severity Reaction Status Date / Time No Known Allergies Allergy Verified 11/30/22 10:47 Home Medications Medication Instructions Recorded Confirmed Type multivitamin 1 tab PO QAM 03/12/18 11/30/22 History hydrocodone 5 mg-acetaminophen 325 0.5 tab PO DAILY PRN Pain 11/30/22 11/30/22 History mg tablet omeprazole 40 mg capsule,delayed 40 mg PO QAM 11/30/22 11/30/22 History release pravastatin 80 mg tablet 80 mg PO HS 11/30/22 11/30/22 History Past Med/Surg History Medical History Chronic anemia GERD (gastroesophageal reflux disease) History of COVID-19 2020; symptoms resolved History of GI bleed Hyperlipidemia Osteoarthritis Surgical History History of cataract surgery R/L History of colonoscopy History of esophagogastroduodenoscopy (EGD) History of herniorrhaphy R/L inguinal History of total knee replacement R/L Left TKA (04/17/18): SAB at L3-4 x1 attempt + PNB at [facility] History of total shoulder replacement right Hx of vasectomy Family History Grandmother Family history of diabetes mellitus Father , Age 83 Alzheimer disease Mother No problems noted. 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 How many Children do You have: 2 Feels Safe at Home: Yes Safety Concerns: Feels Safe At This Time Assistive Devices: Glasses and Walker Review of Systems All systems reviewed & are unremarkable except as noted in HPI & below Physical Exam Constitutional: well developed and well nourished; no acute distress Eyes: PERRL, conjunctivae normal, anicteric sclerae ENMT: external ear and nose normal, oropharynx normal Neck: trachea midline, no thyromegaly Respiratory: normal respiratory effort, lungs clear to auscultation Cardiovascular: Rate/Rhythm: regular rate and regular rhythm Heart Sounds: + murmur (II/ systolic murmur) Musculoskeletal: Left shoulder: Crepitation with ROM. Diffuse tenderness, max tenderness anterior glenoid. Positive impingement signs. Painful ROM. FF to 140 degrees, abduction to 90 degrees. Full strength Skin: no rashes, warm and dry Neurologic: patellar DTR's 2+ bilat, sensation intact Psychiatric: A+Ox3, euthymic affect Results & Data Diagnostic Findings Four-view x-rays of the shoulder demonstrate that he has advanced glenohumeral osteoarthritis, with a large inferior humeral osteophyte. Axillary view there is ocbe-wi-zdis articulation, with some minor bone loss. He does not have any major subluxation posteriorly at all. There is some retroversion of the glenoid. He still has a maintained acromiohumeral interval and mild AC joint arthritis only, with a type I acromion on outlet view. Four-view left shoulder x-rays. MRI demonstrates an intact rotator cuff.
[~2022-12-13 08:03] MED LIST changes: +BUPIVACAINE 0.5 % 5 MG/1 ML PF 10ML VIAL ONE; -CEFAZOLIN 1000MG/55 ML D5W 55 ML IV SCH; -CYAN100048 PO; -DEXAMETHASONE 4 MG TAB PO SCH; -HYDR-5688 PO; -LACTATED RINGER'S 1000ML 1,000 ML IV SCH; +LR 15ML/HR IV SCH; +LR 60ML/HR IV SCH; -METOCLOPRAMIDE HCL 10 MG TAB PO SCH; +METOCLOPRAMIDE HCL 10 MG TABLET PO SCH; -MULT-506 PO; -OMEP20TA PO; -PRAV20TA PO; -ROPIVACAINE 0.5% 5 MG/ML 30 ML VIAL ONE; -SILD100T PO; +TRANEXAMIC ACID 1,000 MG **IV Intra-op IV SCH; +TRANEXAMIC ACID 1,000 MG **IV Pre-op IV SCH; -VITA400C3 PO; -ZOLP10TA PO; +ceFAZolin 2000MG 2,000 MG/15 ML SYR IV SCH; +dexAMETHasone 4 MG TAB PO SCH
[2022-12-13] MEDS ORDERED: fentaNYL citrate PF 100 MCG/2 ML VIAL ONE (08:27)
[2022-12-13] MEDS ORDERED: MIDAZOLAM HCL 1 MG/ML 2ML VIAL ONE ×2 (08:27→09:48)
[2022-12-13] MEDS ORDERED: ONDANSETRON INJ 2 MG/ML 2 ML VIAL IV PRN ×2 (09:22→15:13)
[2022-12-13] MEDS ORDERED: PROMETHAZINE HCL 12.5 MG in SODIUM CHLORIDE 0.9% 50 ML IV PRN (09:22)
[2022-12-13] MEDS ORDERED: fentaNYL citrate PF 100 MCG/2 ML VIAL IV PRN (09:22)
[2022-12-13] MEDS ORDERED: ATROPINE SULFATE 0.1 MG/ML 10ML SYR IV PRN (09:22)
[2022-12-13] MEDS ORDERED: HYDROmorphone INJ 2 MG/ML SYR/VIAL IV PRN (09:22)
[2022-12-13] MEDS ORDERED: ePHEDrine sulfate 50 MG/ML AMP IV PRN (09:22)
--- NOTE | 2022-12-13 09:55 | History & Physical Bridge Note ---
Date of Service December 13, 2022 History & Physical Bridge Note I have examined the patient, reviewed the History & Physical and in the interval since the performance of the History & Physical I have noted the following changes of clinical significance: no changes noted
[2022-12-13] MEDS ORDERED: EpINEphrine HCL INJ 1 MG/ML 1ML SYRINGE ONE (10:38)
[2022-12-13] MEDS ORDERED: PROPOFOL IV EMULSION 10 MG/ML 20 ML VIAL IV ONE (11:14)
[2022-12-13] MEDS ORDERED: ROCURONIUM BROMIDE 10 MG/ML 5 ML VIAL IV ONE ×2 (11:14→12:35)
[2022-12-13] MEDS ORDERED: SODIUM CHLORIDE 0.9% PF INJ 10 ML VIAL ONE (11:14)
[2022-12-13] MEDS ORDERED: GLYCOPYRROLATE 0.2 MG/ML VIAL ONE (11:14)
[2022-12-13] MEDS ORDERED: LIDOCAINE 2% 2 ML VIAL/AMP(20MG/ML) INFIL ONE (11:14)
[2022-12-13] MEDS ORDERED: ePHEDrine sulfate 50 MG/ML AMP ONE (11:14)
[2022-12-13] MEDS ORDERED: ONDANSETRON INJ 2 MG/ML 2 ML VIAL ONE (11:14)
[2022-12-13] MEDS ORDERED: SUGAMMADEX SODIUM 200 MG/2 ML VIAL IV ONE (13:21)
--- NOTE | 2022-12-13 13:57 | Operative Report ---
Post Operative Report Pre & Post Diagnosis Operation Date: 12/13/22 10:15 Pre-Op Diagnosis: Left Shoulder end-stage glenohumeral joint osteoarthritis, chronic biceps tenosynovitis Post-Op Diagnosis: Left Shoulder end-stage glenohumeral joint osteoarthritis, chronic biceps tenosynovitis biceps tendinopathy I identified the patient and participated in the time-out.: Yes Procedure Operation Date: 12/13/22 10:15 Actual Procedures p Left Total Shoulder Arthroplasty, Biceps Tenodesis(Left) - Chris Phillips MD Surgeon Chris Phillips MD Electrical Solderer Savage LOPEZ Estimated Blood Loss 100 Findings Consistent with Post-Op Diagnosis Specimens Humeral head Drains 2 Hemovac Anesthesia Type General Regional Complications none Disposition Disposition: Recovery Room Indications 77-year-old male with longstanding progressive osteoarthritis in his left shoulder. Patient has grade 4 [id number] glenohumeral osteoarthritis with intact rotator cuff and marked chronic biceps tenosynovitis with fluid collection around the biceps tendon on MRI. Patient already has successful right shoulder replacement in the past. Description of Procedure The patient was taken to the operating room and anesthetized under a general and regional block anesthesia. A towel roll was placed under the medial border of the scapula of the left shoulder. The patient's head was placed on a foam headrest and protective eyewear was placed and the extremities were well padded. The arm was draped free in order to manipulate the shoulder as necessary. The shoulder exam demonstrated 130 degrees forward flexion 90 degrees AB duction 30 degrees external rotation. The shoulder was sterilely prepped and draped in the usual sterile fashion. An anterior deltopectoral approach was performed. A longitudinal incision was made in the interval. The skin was incised sharply and subcutaneous tissues dissected down to the fascia. The cephalic vein was id entified and retracted laterally with the deltoid. Multiple crossing veins were tied off with silk ties and divided. During the dissection one of the branches of the upper cephalic vein tore into the vein itself and this required tying off the upper portion of the vein. The clavipectoral fascia was divided at the lateral margin of the conjoined tendon and divided up to the level of the coracoacromial ligament which was preserved. The upper 1 cm of the pectoralis was released for inferior exposure. The biceps tendon findings demonstrated marked chronic tenosynovitis around biceps tendon with a large fluid collection there and large bicipital groove bone spurs.. The rotator cuff tendon findings demonstrated normal intact rotator cuff. The large fluid collection around the biceps tendon was evacuated and the tenosynovitis tissue was dissected out and resected. The bicipital groove bone spurs were resected. The circumflex vessels were identified and tied off with silk ties and divided laterally. The fibers and subscapularis were split longitudinally at the level of the circumflex vessels down to the capsule and then reflected off the inferior capsule using a Kitner elevator. The axillary nerve was identified with a tug test and protected with a blunt Joseph retractor. The rotator interval was opened up and extended down to the glenoid. The biceps tendon was identified a nd tenodesed to the pectoralis tendon with [id number] #2 FiberWire sutures in the proximal biceps was resected. The subscapularis tendon was taken down with a trans-tendinous incision leaving a cuff of tissue for repair on the lesser tuberosity. The incision was carried down to the tendon and the capsule and a #1 Vicryl suture was placed into the free end of the subscapularis tendon. The capsule was subperiosteally dissected off the inferior neck of the humerus exposing the humeral osteophytes which demonstrated very large circumferential osteophytes with large inferior osteophyte. The osteophytes were excised with an artist chisel and a rongeur. The capsular release along the inferior neck of the humerus was completed. The humerus was then retracted posterior to the glenoid with a Fukuda retractor. The remainder of the biceps tendon and labrum was resected. The glenoid findings demonstrated majority of the articular surface was eburnated bone with small rim of anterior superior articular cartilage remaining.. I did an anterior inferior and posterior inferior release with electrocautery on bone and a Gongora elevator with the axillary nerve continuing to be protected with the blunt Hohmann retractor inferiorly. When the releases were completed and the humeral head was exposed with some extension and external rotation and in anatomic head cut was made using the oscillating saw. The Tornier ascend Flex PTC total shoulder arthroplasty was used including the Cortiloc glenoid component. Attention was first taken to preparation of the humeral shaft. A centralizing awl was used followed by broaches up to the appropriate templated size. The trial broach was left in place and a cut protector was placed. The humerus was then retracted posterior to the glenoid using a Bankart retractor anteriorly and blunt Joseph and posterior Tornier glenoid retractor. A central drill hole was made into the glenoid. The glenoid was sized for a size medium 40 radius Cortiloc glenoid component. The glenoid was reamed and the central drill widened and the guide for the 3 peripheral peg holes was placed in the peg holes were drilled and a trial component was placed with a tight fit. The trial was removed and the glenoid was irrigated with pulsatile lavage antibiotic solution and the drill holes were dried and packed with epinephrine-soaked tampons for hemostasis. The Palacos G cement was vacuum mixed. The final component medium size 40 radius Cortiloc component was cemented into position and held in position with pressure until the cement cured. A humeral head trial was placed. A trial reduction was performed and the shoulder was stable. The trial was removed and the humerus and canal were irrigated with pulsatile lavage saline solution. 3 drill holes were made into the hard bone in the bicipital groove lateral to the lesser tuberosity and 3 #5 FiberWire transosseous sutures were placed for repair of the subscapularis. After further irrigation of the canal and the final components were assembled. The final components were the Tornier PTC ascend flex 5 a standard humeral stem assembled to the 52 x 23 mm high offset humeral head. The implant was then impacted into the humerus with a tight press-fit. The humerus was reduced to the glenoid and stability verified. The subscapularis was repaired with the #5 FiberWire sutures in a Rufino-Edgar suture technique and lateral row fixation with [id number] #2 FiberWire in the soft tissue. The rotator interval was closed and maximal external rotation. The pectoralis was then closed with fig [id number] #2 FiberWire suture. The sutures were passed through the biceps tendon as well to reinforce the biceps tenodesis. 2 Hemovac drains were placed. The deltopectoral interval was closed with [id number] #1 Vicryl sutures. The subcutaneous tissues were closed with interrupted 2-0 Vicryl and the skin was closed with florecita and a sterile dressing was applied. The patient tolerated the procedure well. Savage LOPEZ, my physician assistant center manager, assisted in soft tissue retraction instrument management suture management and assisted in the subcutaneous and skin closure and will participate in the postoperative care the patient. I attest to the content of the Intraoperative Record and any orders documented therein. Any exceptions are noted below.
--- NOTE | 2022-12-13 14:39 | Anesthesiology Progress Note ---
Date of Service December 13, 2022 Anesthesia Post Procedure Vital Signs Vital Signs: Temp Pulse Pulse Resp BP Pulse Ox O2 Del Method 12/13/22 14:30 36.7 C 94 H 18 117/76 96 Room Air 12/13/22 14:20 94 H 22 123/75 97 Nasal Cannula 12/13/22 14:10 97 H 21 112/74 97 Oxymask 12/13/22 14:02 36.3 C L 93 H 16 133/80 93 Oxymask 12/13/22 08:53 36.5 C 63 18 173/96 H 98 Room Air O2 Flow Rate 12/13/22 14:30 3 12/13/22 14:20 3 12/13/22 14:10 6 12/13/22 14:02 6 12/13/22 08:53 Transfer of Care Handoff Completed per policy Notes Mental Status: alert / awake / arousable and participated in evaluation Patient Amnestic to Procedure: Yes Nausea / Vomiting: adequately controlled Pain: adequately controlled Airway Patency, RR, SpO2: stable & adequate BP & HR: stable & adequate Hydration State: stable & adequate Anesthetic Complications: no major complications apparent
[2022-12-13] MEDS ORDERED: METOCLOPRAMIDE HCL INJ 5 MG/ML 2 ML VIAL IV PRN (15:13)
[2022-12-13] MEDS ORDERED: NALOXONE HCL 0.4 MG/1 ML VIAL/CARP IV PRN (15:13)
[2022-12-13] MEDS ORDERED: HYDROmorphone INJ 0.5 MG/0.5 ML SYR IV PRN (15:13)
[2022-12-13] MEDS ORDERED: bisacodyL 10 MG SUPP PR PRN (15:13)
[2022-12-13] MEDS ORDERED: MAGNESIUM HYDROXIDE SUSP 30 ML UDC PO PRN (15:13)
[2022-12-13] MEDS: SODIUM CHLORIDE 0.9% 1000ML 1,000 ML IV SCH (16:18)
--- NOTE | 2022-12-13 16:19 | XRay Report ---
LEFT SHOULDER 2 VIEWS CLINICAL HISTORY: Postoperative examination. FINDINGS: 2 portable views of the left shoulder are obtained. The skeletal structures are osteopenic. A left shoulder arthroplasty is in near anatomic alignment. No fracture is seen. Productive degenera tive change is noted at the acromioclavicular joint. Skin clips, a surgical drain, subcutaneous gas, and soft tissue swelling overlying the shoulder are expected postoperative findings. The visualized l eft lung parenchyma appears clear noting basilar atelectasis. IMPRESSION: Expected postsurgical changes following left shoulder arthroplasty. No acute fracture see n. Electronically signed by: Mario Dumont M.D. 12/13/2022 4:18 PM
[2022-12-13] MEDS ORDERED: MELATONIN 3 MG TAB PO PRN (20:34)
[2022-12-13] MEDS ORDERED: SENNA 8.6 MG TAB PO SCH (21:00)
[2022-12-13] MEDS ORDERED: PRAVASTATIN SOD 40 MG TAB PO SCH (21:00)
[2022-12-13] MEDS: DOCUSATE SODIUM 100 MG CAP PO SCH (21:22)
[2022-12-13] MEDS: ceFAZolin 2000MG 2,000 MG/15 ML SYR IV SCH (21:22)
[2022-12-14] MEDS: HYDROCODONE/ACETAMOPHEN 5/325MG TAB PO PRN ×2 (01:53→05:55)
[2022-12-14] MEDS: SODIUM CHLORIDE 0.9% 1000ML 1,000 ML IV SCH (01:55)
[2022-12-14] MEDS: ceFAZolin 2000MG 2,000 MG/15 ML SYR IV SCH (04:57)
[2022-12-14] MEDS ORDERED: oxyCODONE HCL IR 5 MG TAB (IMMEDIATE RELEASE) PO PRN (07:28)
--- NOTE | 2022-12-14 07:32 | Orthopedic Progress Note ---
Date of Service December 14, 2022 Assessment & Plan (1) Status post total shoulder arthroplasty: Plan: Postop day #1 anatomic total shoulder arthroplasty left shoulder -PT/OT per protocol -Pain management as written -A.m. labs: Hgb 11.1 from 13 preop due to surgical loss vs dilutional, leukocytosis likely due to surgical stress vs perioperative steroids. Patient is asymptomatic. Chemistries pending. -DVT prophylaxis: SCDs -Discharge planning: Plan on discharge home with plans on outpatient physical therapy. Plan to discharge home today. Admission and Anticipated Discharge Date Admission Date: December 13, 2022 Subjective Patient is postop day 1 left total shoulder. He is doing well this morning. Minimal pain. No current complaints. Denies chest pain, shortness of breath, nausea/vomiting/diarrhea, headaches or dizziness. Review of Systems Review of Systems: All systems reviewed & are unremarkable except as noted in Subjective Physical Exam Physical Exam: Left shoulder: Sling in place. Dressing is clean, dry, intact. Hemovac on suction. Fingers are mobile with good armature connector strength. Distally neurovascular status and sensation is grossly intact. Constitutional: WD/WN, vitals as above Results & Data Vital Signs (Past 12 Hours) Vital Signs Temp Pulse Resp BP Pulse Ox O2 Del Method 12/14/22 07:17 36.5 C 85 19 121/88 95 Room Air 12/14/22 01:55 37.1 C 88 18 123/79 94 Room Air 12/13/22 23:00 36.5 C 94 H 16 113/67 93 Room Air (1) Status post total shoulder arthroplasty Laterality: left Qualified Code(s): Z96.612 - Presence of left artificial shoulder joint
[2022-12-14] MEDS: DOCUSATE SODIUM 100 MG CAP PO SCH (08:04)
[2022-12-14 08:28] LABS: Basophils # (auto) 0.02 K/uL (0-0.2); Basophils % (auto) 0.1 %; Hematocrit (blood only) 32.3 % (42.0-52.0); Hemoglobin 11.1 g/dl (14.0-18.0); Immature Granulocytes # (auto) 0.07 K/uL (0.01-0.20); Immature Granulocytes % (auto) 0.5 %; Lymphocytes # (auto) 1.27 K/uL (1.2-3.4); Lymphocytes % (auto) 9.1 %; Mean Corpuscular Hgb Conc 34.4 g/dL (32.0-36.0); Mean Corpuscular Volume 93.1 fL (80.0-100.0); Mean Platelet Volume 10.5 fL (9.4-12.4); Monocytes # (auto) 1.37 K/uL (0.11-0.59); Monocytes % (auto) 9.9 %; Neutrophils # (auto) 11.15 K/uL (1.40-6.50); Neutrophils % (auto) 80.4 %; Platelet Count 262 K/uL (130-400); RDW Coefficient of Variation 13.8 % (11.5-14.5); RDW Standard Deviation 46.8 fL (36.4-46.3); Red Blood Count 3.47 M/uL (4.70-6.10); White Blood Count 13.88 K/ul (4.8-10.8)
[2022-12-14] MEDS ORDERED: MULTIVITAMIN TAB PO SCH (09:00)
[2022-12-14] MEDS ORDERED: PANTOprazole 40 MG TAB PO SCH (09:00)
[2022-12-14] MEDS ORDERED: NON-FORMULARY MEDICATION (Multivitamin Tablet) PO SCH (09:00)
[2022-12-14 09:04] LABS: BUN Creatinine Ratio 24.1 (10-20); Calcium 8.4 mg/dl (8.6-10.3); Creatinine Clr Calc Pharmacy 51.7 ml/min; Est GFR (Non-African American) 62.1 ml/min
--- NOTE | 2022-12-14 13:17 | Discharge Summary ---
Date of Service December 14, 2022 Admission HPI Per Admitting Provider 77yo male with PMHx significant for dyslipidemia, GERD, hx GI bleed who presents with ongoing left shoulder pain. He has had pain for several years. Pain is interfering with his daily activity. He has failed conservative measures. He would like to proceed with surgery. Patient denies headaches, sweats, fevers, chills, double vision, blurred vision, cough, sore throat, dysphagia, chest pain, sob, wheezing, n/v/d/c, numbness, tingling, fatigue, urinary symptoms, mood disorders. ROS positive for left shoulder pain and stiffness. Admission Exam Per Admitting Provider Constitutional: well developed and well nourished; no acute distress Eyes: PERRL, conjunctivae normal, anicteric sclerae ENMT: external ear and nose normal, oropharynx normal Neck: trachea midline, no thyromegaly Respiratory: normal respiratory effort, lungs clear to auscultation Cardiovascular: Rate/Rhythm: regular rate and regular rhythm Heart Sounds: + murmur (II/ systolic murmur) Musculoskeletal: Left shoulder: Crepitation with ROM. Diffuse tenderness, max tenderness anterior glenoid. Positive impingement signs. Painful ROM. FF to 140 degrees, abduction to 90 degrees. Full strength Skin: no rashes, warm and dry Neurologic: patellar DTR's 2+ bilat, sensation intact Psychiatric: A+Ox3, euthymic affect Principal Diagnosis Left shoulder osteoarthritis Discharge Exam Left shoulder: Sling in place. Dressing is clean, dry, intact. Hemovac on suction. 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 Distally neurovascular status and sensation is grossly intact. Constitutional WD/WN, vitals as above Discharge Data Allergies Allergy/AdvReac Type Severity Reaction Status Date / Time No Known Allergies Allergy Verified 12/13/22 08:51 Consultations 12/08/22 14:40 Consult Hospitalist Routine Procedures Performed Operation Date: 12/13/22 10:15 Actual Procedures p Left Total Shoulder Arthroplasty, Biceps Tenodesis(Left) - Chris Phillips MD Ordered Studies 12/13/22 05:00 US - OR guided needle placemen Routine Hospital Course (1) Status post total shoulder arthroplasty: Postop day #1 anatomic total shoulder arthroplasty left shoulder -PT/OT per protocol -Pain management as written -A.m. labs: Hgb 11.1 from 13 preop due to surgical loss vs dilutional, leukocytosis likely due to surgical stress vs perioperative steroids. Patient is asymptomatic. Chemistries pending. -DVT prophylaxis: SCDs -Discharge planning: Plan on discharge home with plans on outpatient physical therapy. Plan to discharge home today. Lab Results 12/14/22 12/14/22 Range/Units 07:10 07:10 WBC 13.88 H (4.8-10.8) K/ul RBC 3.47 L (4.70-6.10) M/uL Hgb 11.1 L (14.0-18.0) g/dl Hct 32.3 L (42.0-52.0) % MCV 93.1 (80.0-100.0) fL MCH 32.0 (25.0-34.0) pg MCHC 34.4 (32.0-36.0) g/dL RDW Std Deviation 46.8 H (36.4-46.3) fL RDW Coeff of Diya 13.8 (11.5-14.5) % Plt Count 262 (130-400) K/uL MPV 10.5 (9.4-12.4) fL Immature Gran % (Auto) 0.5 % Neut % (Auto) 80.4 % Lymph % (Auto) 9.1 % Upton % (Auto) 9.9 % Eos % (Auto) 0.0 % Baso % (Auto) 0.1 % Neut # (Auto) 11.15 H (1.40-6.50) K/uL Lymph # (Auto) 1.27 (1.2-3.4) K/uL Upton # (Auto) 1.37 H (0.11-0.59) K/uL Eos # (Auto) 0.00 (0-0.50) K/uL Baso # (Auto) 0.02 (0-0.2) K/uL Immature Gran # (Auto) 0.07 (0.01-0.20) K/uL Sodium 134 L (136-145) mmol/L Potassium 4.0 (3.5-5.1) mmol/L Chloride 102 (98-107) mmol/L Carbon Dioxide 26 (21-32) mmol/L Anion Gap 6 (3-11) BUN 27 H (6-23) mg/dl Creatinine 1.12 (0.6-1.4) mg/dl Est Cr Clr Drug Dosing 51.7 ml/min Est GFR ( Amer) 72.0 ml/min Est GFR (Non-Af Amer) 62.1 ml/min BUN/Creatinine Ratio 24.1 H (10-20) Glucose 112 H (70-99(Fasting)) mg/dl Calcium 8.4 L (8.6-10.3) mg/dl Total Time Total Time Spent Total Time Spent (In Minutes): 20 Discharge Plan Discharge Items Patient Disposition: Home - Self-Care Reason For Visit: POST OP Discharge Diagnosis: Left shoulder osteoarthritis Activity: Per Instructions section Non-emergency contact: Surgeon Call non-emergency contact if: you have any medication questions, your pain is not controlled, your pain is concerning for you, you have a fever, your temperature is above 101, your wound has increased redness and your wound has increased drainage Follow-up/Referrals: Mirza Shin, [Primary Care Provider] - Diet: Regular Addtl Attending Provider Instructions: ACTIVITY RECOMMENDATIONS: SELF CARE INSTRUCTIONS AFTER TOTAL SHOULDER ARTHROPLASTY A. You may do daily exercises as taught in physical therapy while in hospital. No lifting with the operative arm. Please schedule your outpatient physical therapy appointment to begin within 2-3 days after leaving the hospital. Specific restrictions will be written on your physical therapy prescription that is provided to you. B. You are to wear your sling/immobilizer at all times EXCEPT when performing your daily exercises, participating in physical therapy and for hygiene purposes. C. You may perform dry, daily dressing changes. Please keep your incision covered. You may shower 48 hours after surgery. Do not apply soap or any ointment/lotions directly over incision. Do not soak incision in bath tub/swimming pool. D. You may use ice as needed to operative shoulder. SPECIAL CARE INSTRUCTIONS: VERY IMPORTANT TO READ AND REVIEW A. There are a few signs you need to watch for after you are home. Call [facility] at [phone] if you experience any of the followin. Increased severe shoulder pain. Some pain is expected especially when you exercise. 2. Increased swelling in you shoulder or arm; pain or swelling in either upper extremity. 3. Any fluid drainage from the incision. 4. Shortness of breath or chest pain. B. Please call [facility] at [phone] if you have any questions or concerns about your operation or recovery. C. Call your physician if: 1. Temperature is greater than 101 degrees (F). 2. Pain is not relieved by prescribed pain medications. 3. Increase drainage or redness from incision. 4. Unanswered questions or concerns. FOLLOW UP VISIT: Please call [facility] at [phone] to schedule a follow up appointment with Dr. Phillips or his PA in 12-14 days from your surgery date. Stand-Alone Forms: My [facility] [place], Smoking Cessation Medications and DC Order Prescriptions: New acetaminophen [Tylenol Extra Strength] 500 mg Tablet 1,000 mg PO Q8 Qty: 60 0RF oxycodone 5 mg Tablet 5 - 10 mg PO .Q4h-6h MDD 6 PRN (Reason: pain) Qty: 30 0RF Rx Instructions: Ongoing therapy, Dr. 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
[2022-12-14] MEDS ORDERED: ACETAMINOPHEN 500 MG TAB PO SCH (14:00)
== END 2022-12-14 13:04 | disposition home or self-care (01) ==
LOC: ASU 08:03 → 3N 08:03
DX: Z79.899 Other long term (current) drug therapy; Z96.611 Presence of right artificial shoulder joint; M19.012 Primary osteoarthritis, left shoulder; Z86.16 Personal history of COVID-19; K21.9 Gastro-esophageal reflux disease without esophagitis; M75.22 Bicipital tendinitis, left shoulder; Z96.653 Presence of artificial knee joint, bilateral; E78.5 Hyperlipidemia, unspecified